=== PATIENT | female | born 1975 | race Caucasian/White ===

== ENCOUNTER 2019-09-19 11:25 | Outpatient (CLI) | payer BC, OTHER, SELFPAY ==
--- NOTE | ~2019-09-19 | US_ITS ---
EXAMINATION: US venous doppler [facility] DATE: 09/19/2019 11:54 INDICATION: Left lower limb swelling TECHNIQUE: Sarah scale images without and with compression and Doppler images of the left lower extrem ity veins were obtained. COMPARISON: None FINDINGS: The left common femoral vein, profunda femoral vein, femoral vein, popliteal vein, peroneal trunk, posterior tibial veins, and greater saphenous vein are patent. IMPRESSION: 1. Patent left lower extremity veins. No evidence of deep venous thrombosis. Reviewed, dictated and finalized at location A.
== END 2019-09-19 11:26 | disposition home or self-care (01) ==
LOC: ANHIMG 11:32
PROVIDERS: PCP Registered Nurse; Visit Provider Registered Nurse
DX: M79.89 Other specified soft tissue disorders (principal); M79.662 Pain in left lower leg
CPT/HCPCS: 93971

== ENCOUNTER 2019-10-18 08:14 | Outpatient (CLI) | payer BC, OTHER, SELFPAY ==
--- NOTE | ~2019-10-18 | MM_ITS ---
EXAMINATION: MM screening [facility] BI w ifrah HISTORY: Screening TECHNIQUE: Craniocaudal and mediolateral oblique 3-D tomosynthesis images were obtained and synthetic 2-D images were generated. CAD analysis was submitted and interpreted. COMPARISON: Comparison to multiple prior studies sequentially, with oldest reviewed study dated 10/11. BREAST PARENCHYMAL COMPOSITION: There are scattered areas of fibroglandular density. FINDINGS: There is no evidence of suspicious mass, calcification, or architectural distortion to sugg est malignancy in either breast. There has been no suspicious interval change. IMPRESSION: 1. No mammographic evidence of malignancy. 2. Recommend routine screening mammography in one year. BI-RADS Category 1: Negative Reviewed, dictated and finalized at location A.
== END 2019-10-18 08:15 | disposition home or self-care (01) ==
LOC: ANHIMG 08:17
PROVIDERS: PCP Registered Nurse; Visit Provider Registered Nurse
DX: Z12.31 Encounter for screening mammogram for malignant neoplasm of breast (principal)
CPT/HCPCS: 77063; 77067

== ENCOUNTER 2020-06-12 14:49 | Outpatient (CLI) | payer BC, OTHER, SELFPAY ==
--- NOTE | ~2020-06-12 | XR_ITS ---
EXAMINATION: XR hip LT min 2V, XR hip RT min 2V DATE: 06/12/2020 15:17 INDICATION: Multiple joint pain TECHNIQUE: 1. Anteroposterior and frog-leg lateral views of the left hip were obtained. 2. Anteroposterior and frog-leg lateral views of the right hip were obtained. COMPARISON: None. FINDINGS: Alignment is normal at both hips. No fracture or suspected avascular necrosis. Bilateral hip joint sp aces are normal with small marginal osteophytes about the lateral rims of the acetabula. Sacrum and b ilateral sacral iliac joints are normal. Soft tissues are unremarkable. IMPRESSION: 1. Minimal bilateral hip osteoarthritis. Reviewed, dictated and finalized at location A. IMPRESSION: 1. Minimal bilateral hip osteoarthritis.
--- NOTE | ~2020-06-12 | XR_ITS ---
EXAMINATION: XR hand LT 2V, XR hand RT 2V, XR wrist LT 2V, XR wrist RT 2V DATE: 06/12/2020 15:17 INDICATION: Multiple joint pain TECHNIQUE: 1. Posteroanterior and lateral views of the right wrist were obtained. 2. Dorsal palmar and lateral views of the right hand were obtained. 3. Posteroanterior and lateral views of the left wrist were obtained. 4. Dorsal palmar and lateral views of the left hand were obtained. COMPARISON: None. FINDINGS: Alignment of the bilateral hands and wrists is normal. No fracture identified. Minimal to mild polya rticular osteoarthritis with slight nonuniform joint space narrowing at the bilateral hands and wrist s with typical distribution. This includes at the right distal radioulnar, bilateral midcarpal, trisc aphe, left first metacarpophalangeal and bilateral fifth metacarpophalangeal and multiple bilateral i nterphalangeal joints with distal predominance. No erosions to suggest inflammatory arthritis. No foc al soft tissue swelling. IMPRESSION: 1. Minimal to mild polyarticular osteoarthritis with typical distribution at the bilateral hands and wrists. Reviewed, dictated and finalized at location A. IMPRESSION: 1. Minimal to mild polyarticular osteoarthritis with typical distribution at th e bilateral hands and wrists. IMPRESSION: 1. Minimal to mild polyarticular osteoarthritis with typical distribution at th e bilateral hands and wrists. IMPRESSION: 1. Minimal to mild polyarticular osteoarthritis with typical distribution at th e bilateral hands and wrists.
--- NOTE | ~2020-06-12 | XR_ITS ---
EXAMINATION: XR foot LT 2V, XR foot RT 2V DATE: 06/12/2020 15:17 INDICATION: Multiple joint pain TECHNIQUE: 1. Dorsoplantar and lateral views of the left foot were obtained. 2. Dorsoplantar and lateral views of the right foot were obtained. COMPARISON: None. FINDINGS: Alignment is normal at both feet. No fracture. Minimal to mild osteoarthritis at the first metatarsop halangeal and several interphalangeal joints in both feet. No erosions to suggest an inflammatory art hritis. Bilateral small Achilles and plantar calcaneal spurs. Soft tissues are unremarkable. IMPRESSION: 1. Minimal to mild polyarticular osteoarthritis in the bilateral forefeet. Reviewed, dictated and finalized at location A. IMPRESSION: 1. Minimal to mild polyarticular osteoarthritis in the bilateral forefeet.
== END 2020-06-12 14:50 | disposition home or self-care (01) ==
LOC: ANHIMG 14:52
PROVIDERS: PCP Registered Nurse; Visit Provider Internal Medicine Rheumatology
DX: M19.041 Primary osteoarthritis, right hand (principal); M19.042 Primary osteoarthritis, left hand; M19.031 Primary osteoarthritis, right wrist; M19.032 Primary osteoarthritis, left wrist
CPT/HCPCS: 73100; 73120; 73502; 73620

== ENCOUNTER 2020-10-28 07:34 | Outpatient (CLI) | payer BC, OTHER, SELFPAY ==
--- NOTE | ~2020-10-28 | MM_ITS ---
EXAMINATION: MM screening olivia BI w ifrah HISTORY: Screening TECHNIQUE: Craniocaudal and mediolateral oblique 3-D tomosynthesis images were obtained and synthetic 2-D images were generated. CAD analysis was submitted and interpreted. COMPARISON: 10/18/2019 BREAST PARENCHYMAL COMPOSITION: There are scattered areas of fibroglandular density. FINDINGS: There is no evidence of suspicious mass, calcification, or architectural distortion to sugg est malignancy in either breast. There has been no suspicious interval change. IMPRESSION: 1. No mammographic evidence of malignancy. 2. Recommend routine screening mammography in one year. BI-RADS Category 1: Negative Reviewed, dictated and finalized at location A.
== END 2020-10-28 07:35 | disposition home or self-care (01) ==
LOC: ANHIMG 07:36
PROVIDERS: PCP Registered Nurse; Visit Provider Registered Nurse
DX: Z12.31 Encounter for screening mammogram for malignant neoplasm of breast (principal)
CPT/HCPCS: 77063; 77067

== ENCOUNTER 2021-12-22 07:19 | Outpatient (CLI) | payer OTHER, SELFPAY ==
--- NOTE | ~2021-12-22 | MM_ITS ---
EXAMINATION: MM screening [facility] BI w ifrah HISTORY: Screening mammogram TECHNIQUE: Craniocaudal and mediolateral oblique 3-D tomosynthesis images were obtained and synthetic 2-D images were generated. Bilateral rotated lateral CC views. ............CAD analysis was submitte d and interpreted. COMPARISON: 10/28/2020, 10/18/2019, bilateral screening mammogram examinations BREAST PARENCHYMAL COMPOSITION: There are scattered areas of fibroglandular density. FINDINGS: There is no evidence of suspicious mass, calcification, or architectural distortion to sugg est malignancy in either breast. There has been no suspicious interval change. IMPRESSION: 1. No mammographic evidence of malignancy. 2. Recommend routine screening mammography in one year. BI-RADS Category 1: Negative Reviewed, dictated and finalized at location A. AULIC BLOCKER
== END 2021-12-22 07:20 | disposition home or self-care (01) ==
PROVIDERS: PCP Registered Nurse; Visit Provider Registered Nurse
DX: Z12.31 Encounter for screening mammogram for malignant neoplasm of breast (principal)
CPT/HCPCS: 77063; 77067

== ENCOUNTER 2023-01-21 07:12 | Outpatient (CLI) | payer OTHER, SELFPAY ==
--- NOTE | ~2023-01-21 | MM_ITS ---
EXAMINATION: MM screening [facility] BI w ifrah HISTORY: Screening mammogram TECHNIQUE: Craniocaudal and mediolateral oblique 3-D tomosynthesis images were obtained and synthetic 2-D images were generated. CAD analysis was submitted and interpreted. COMPARISON: 12/22/2021, 10/28/2020, 10/18/2019 BREAST PARENCHYMAL COMPOSITION: There are scattered areas of fibroglandular density. FINDINGS: A stable asymmetry is noted in the posterior third of the upper right breast on the mediola teral oblique view. No suspicious mass, calcification, or architectural distortion are identified in either breast to suggest malignancy. There has been no suspicious interval change. IMPRESSION: 1. No mammographic evidence of malignancy. 2. Recommend routine screening mammography in one year. BI-RADS Category 2: Benign finding(s). Reviewed, dictated and finalized at location A. [employer]GE [employer]ER
== END 2023-01-21 07:13 | disposition home or self-care (01) ==
LOC: ANHIMG 07:15
PROVIDERS: PCP Registered Nurse; Visit Provider Registered Nurse
DX: Z12.31 Encounter for screening mammogram for malignant neoplasm of breast (principal)
CPT/HCPCS: 77063; 77067

== ENCOUNTER 2023-07-13 11:21 | Outpatient (CLI) | payer OTHER, SELFPAY ==
--- NOTE | 2023-07-13 11:38 | ECG_ITS ---
SEE SCANNED COPY FOR CONFIRMED REPORT MTDD
== END 2023-07-13 11:22 | disposition home or self-care (01) ==
PROVIDERS: PCP Registered Nurse; Visit Provider Obstetrics & Gynecology
DX: E78.00 Pure hypercholesterolemia, unspecified (principal); E11.9 Type 2 diabetes mellitus without complications
CPT/HCPCS: 93005

== ENCOUNTER 2023-07-20 01:30 | Day surgery (SDC) | payer OTHER, SELFPAY ==
[2023-07-12 13:30] VITALS: BMI 31.0
--- NOTE | 2023-07-12 13:31 | PC.NURSE ---
Report to the Outpatient Waiting Room, entrance under the green pavilion located off [facility], at time _0600_ on date _[id number]_. Planned Procedure Time: _0730_. Time changes happen often and if your time is changed the preop area will call you the afternoon before. - You and your visitor will be asked to self-screen and do not enter if you have any COVID symptoms. - A mask is optional within the hospital at this time. Patients may have clear liquids (water, carbonated beverages, clear teas, apple juice) until 3 hours prior to surgery with a maximum of 20 ounces. - No food from midnight until time of surgery Take the following medications with a SIP of water the morning of surgery: ___Metoprolol DO NOT STOP ANY OF YOUR OTHER PRESCRIPTION MEDICATIONS PRIOR TO SURGERY ?EXCEPT THE FOLLOWING Medications to discontinue per physician __None Date to take last dose Please no make-up, nail south african, hairspray, perfume, deodorant, or body powder the day of surgery. No jewelry (including any body piercings) or valuables the day of surgery, leave them at home. Please take a shower or bath the night before, or the morning of, surgery with an antibacterial soap. Wear comfortable, loose fitting clothing. - Jewelry must be removed prior to entering the operating room. Rings and piercings that are not removed may be cut off. - The hospital will not accept responsibility for valuables. - Please leave all valuables, including medications, at home the day of surgery. If you are going home after surgery, a licensed regional company truck driver must drive you home. - NO public transportation without another adult if you receive anesthesia. - We recommend that an adult stay with you for 24 hours following discharge. - We also recommend that you do not drive, make important decision, drink alcoholic beverages, or take any drugs that were not prescribed by your health care provider for at least 24 hours after your discharge time. Follow any additional instructions given to you from your surgeon. If you or anyone in your household have experienced Covid symptoms in the past week, please notify your surgeon or the nurse liaison at the phone number below for possible testing. Telephone instructions given to __Debra__and asked if any additional questions and then verbalized understanding. Patient advised to call surgeon office or pre surgery nurse liaison [phone] if any additional questions.
[2023-07-20 06:20] VITALS: BP 133/81; PULSE 88; RESP 18; TEMP 36.5; O2SAT 100
[2023-07-20] MEDS: LACTATED RINGERS 1,000 ML 30 ML IV CONT (07:12)
[2023-07-20] MEDS: ACETAMINOPHEN 500 MG TABLET 1000 MG PO (07:14)
[2023-07-20 07:20] LABS: Glucose Point of Care 160 mg/dl (65-105)
--- NOTE | 2023-07-20 07:28 | WPDANESEPPF ---
Anes - Initial Pre Proc Eval Procedure: Operation Date: 07/20/23 08:00 Proposed Procedures p Hysteroscopy with Biopsy of Endometrium and/or Polypectomy - Roni Gordon MD Date/Time: 07/20/23 07:28 Surgeon: Roni Gordon MD Pre Op Diagnosis: Menorrhagia, Dysmenorrhea Patient Data Age: 47 Gender: F Height: 1.68 m Weight: 88.9 kg Last Vital Signs Temp 36.5 C 07/20/23 06:20 Pulse 88 07/20/23 06:20 Resp 18 07/20/23 06:20 BP 133/81 07/20/23 06:20 Pulse Ox 100 07/20/23 06:20 O2 Del Method Room Air 07/20/23 06:20 Allergies Allergy/AdvReac Type Severity Reaction Status Date / Time No Known Allergies Allergy Verified 07/20/23 06:52 Home Medications Medication Instructions Recorded Confirmed Type ergocalciferol (vitamin D2) 1,250 50,000 unit PO WEEKLY 01/10/19 07/20/23 History mcg (50,000 unit) capsule (Vitamin D2) metformin 1,000 mg tablet 1,000 mg PO BID 01/10/19 07/20/23 History metoprolol tartrate 25 mg tablet 25 mg PO DAILY 01/10/19 07/20/23 History zolpidem 6.25 mg tablet,extended 6.25 mg PO HS 01/10/19 07/20/23 History release,multiphase atorvastatin 10 mg tablet 10 mg PO DAILY 07/12/23 07/20/23 History tirzepatide 10 mg/0.5 mL 10 mg subcut WEEKLY 07/12/23 07/20/23 History subcutaneous pen injector (Mounjaro) aspirin 81 mg tablet 81 mg PO DAILY 07/20/23 07/20/23 History losartan 50 mg tablet 50 mg PO DAILY 07/20/23 07/20/23 History methotrexate sodium 2.5 mg tablet 17.5 mg PO WEEKLY 07/20/23 07/20/23 History pregabalin 50 mg capsule 50 mg PO BID 07/20/23 07/20/23 History Laboratory Tests 07/20/23 07:16 POC Capillary Glucose 160 H mg/dl (65-105) Patient hx anesthesia problems: none Family hx anesthesia problems: none Results Review: All pre-operative results and documents have been reviewed as part of the pre-operative evaluation. [facility] Past Medical History Medical History Arthritis Delivery with history of section Diabetes Hypercholesterolemia Surgical History Surgical History History of cholecystectomy Social History Social History Smoking status: Never smoker Living arrangements: with family Gender identity (if verbalized by the patient): Female Spiritual care concerns: No Anes - Eval Final PreProcedure Day of Procedure 07/20/23 07:28 Patient weight: obese Heart: regular rate and rhythm Lungs: clear to auscultation Airway: Mallampati scale class II Neurological: alert and oriented Last oral intake: >/= 8 hours ASA classification: III Emergent: no Anesthetic plan: proceed Anesthesia type and monitoring: general GIVS and standard monitoring Results Review: All pre-operative results and documents have been reviewed as part of the pre-operative evaluation. Informed Consent: The patient's anesthetic plan and its attendant risks and benefits were discussed with the patient/family/POA. Questions were solicited and answers provided to the satisfaction of the patient/family/POA.
--- NOTE | 2023-07-20 08:08 | WPDHPUPDATE1 ---
History and Physical Update Update Date/Time: 07/20/23 08:08 Procedure to include endometrial biopsy and possible polypectomy. History and Physical has been reviewed, including an updated exam of the patient. There are NO changes in the patient's condition. Risks, benefits, and alternatives have been discussed and questions answered. Patient agrees to proceed with procedure.
[2023-07-20] MEDS: LIDOCAINE HCL 1% LOCAL INJ 20 ML VIAL 10 ML INFILTRATE (08:37)
[2023-07-20] MEDS: KETOROLAC 30 MG/ML VIAL (*BKC) IV PUSH (09:01)
--- NOTE | 2023-07-20 09:04 | W.PM.PROC2 ---
Procedure Note - Detailed Date of Procedure 07/20/23 Pre-op Diagnosis Menorrhagia, Dysmenorrhea Post-op Diagnosis Same Procedure Performed Hysteroscopy D&C Surgeon Roni Gordon MD Anesthesia MAC Indications abnormal uterine bleeding Findings Normal endometrial cavity, small polypoid structure, posterior wall, possible small septum. Description of Procedure the patient was taken the operating room. She was prepped and draped in the dorsal lithotomy position after induction of mac anesthesia. A speculum was placed in the vagina. The cervix was grasped with a tenaculum. The cervix was dilated about 1 cm. The hysteroscope was inserted. The intrauterine cavity and endocervix were evaluated. Hysteroscope was withdrawn. A medium-size curette was used to curettage all the surfaces were within the endometrial cavity. the sample was collected on Telfa and sent to pathology. The hysteroscope was reinserted and the above findings were noted. Patient tolerated the procedure well. The speculum and tenaculum were removed. She was taken recovery room in stable condition. Sponge lap and needle counts were correct x2. Estimated Blood Loss 40 Drains No Packing No Pathology Yes Complications No immediate complications Condition Stable Disposition PACU
[2023-07-20 09:11] VITALS: BP 130/85; PULSE 86; RESP 16; O2SAT 97
[2023-07-20 09:20] LABS: Glucose Point of Care 103 mg/dl (65-105)
[2023-07-20 09:40] VITALS: BP 112/98; PULSE 87; RESP 16
[2023-07-20] MEDS: oxyCODONE HCL (*CRX) 5 MG TAB IR PO (09:42)
[2023-07-20 10:10] VITALS: BP 119/65; PULSE 85; RESP 16
== END 2023-07-20 10:28 | disposition home or self-care (01) ==
PROVIDERS: PCP Registered Nurse; Visit Provider Obstetrics & Gynecology
PROC: 0U5B8ZZ Destruction of Endometrium, Via Natural or Artificial Opening Endoscopic (ICD-10-PCS; CPT 58563; principal; 2023-07-20 08:00)
DX: N92.0 Excessive and frequent menstruation with regular cycle (principal); N94.6 Dysmenorrhea, unspecified; N84.0 Polyp of corpus uteri; E11.9 Type 2 diabetes mellitus without complications; E78.00 Pure hypercholesterolemia, unspecified; E66.9 Obesity, unspecified; Z68.31 Body mass index [BMI] 31.0-31.9, adult; Z79.84 Long term (current) use of oral hypoglycemic drugs; Z79.85 Long-term (current) use of injectable non-insulin antidiabetic drugs; Z79.82 Long term (current) use of aspirin; Z79.631 Long term (current) use of antimetabolite agent
CPT/HCPCS: 58558; 82948; 88305; A9270; J1100; J1885; J2250; J2405; J2704; J3010; J7120

== ENCOUNTER 2023-08-26 11:33 | Outpatient (CLI) | payer OTHER, SELFPAY ==
[2023-08-26 12:21] LABS: Alanine Aminotransferase 31 U/L (6-35); Albumin Level 4.3 g/dL (3.5-5.1); Alkaline Phosphatase 79 U/L (38-126); Anion Gap 9 mmol/L (4-12); Aspartate Amino Transferase 26 U/L (14-36); Bilirubin,Total 0.4 mg/dL (0.2-1.3); Blood Urea Nitrogen 7 mg/dL (7-17); Calcium 8.8 mg/dL (8.4-10.2); Carbon Dioxide 28 mmol/L (22-30); Chloride 101 mmol/L (98-107); Estimated Glomerular Filt Rate > 60; Glucose 87 mg/dL (65-110); Potassium 4.1 mmol/L (3.4-5.0); Sodium 138 mmol/L (137-145)
== END 2023-08-26 11:34 | disposition home or self-care (01) ==
LOC: ANHSURGERY 11:37
PROVIDERS: PCP Registered Nurse; Visit Provider Obstetrics & Gynecology
DX: E78.00 Pure hypercholesterolemia, unspecified (principal); N92.0 Excessive and frequent menstruation with regular cycle
CPT/HCPCS: 36415; 80053; 86850; 86900; 86901

== ENCOUNTER 2023-08-31 02:25 | Day surgery (SDC) | payer OTHER, SELFPAY ==
[2023-08-25 12:05] VITALS: BMI 31.0
--- NOTE | 2023-08-25 12:06 | PC.NURSE ---
Report to the Outpatient Waiting Room, entrance under the green pavilion located off [facility], at time _0600_ on date _[id number]_. Planned Procedure Time: _0730_. Time changes happen often and if your time is changed the preop area will call you the afternoon before. - You and your visitor will be asked to self-screen and do not enter if you have any COVID symptoms. - A mask is optional within the hospital at this time. Patients may have clear liquids (water, carbonated beverages, clear teas, apple juice) until 3 hours prior to surgery with a maximum of 20 ounces. - No food from midnight until time of surgery Take the following medications with a SIP of water the morning of surgery: ___Metoprolol DO NOT STOP ANY OF YOUR OTHER PRESCRIPTION MEDICATIONS PRIOR TO SURGERY ?EXCEPT THE FOLLOWING Medications to discontinue per physician All vitamins Date to take last raaf__[id number] Please no make-up, nail kyrgyz, hairspray, perfume, deodorant, or body powder the day of surgery. No jewelry (including any body piercings) or valuables the day of surgery, leave them at home. Please take a shower or bath the night before, or the morning of, surgery with an antibacterial soap. Wear comfortable, loose fitting clothing. - Jewelry must be removed prior to entering the operating room. Rings and piercings that are not removed may be cut off. - The hospital will not accept responsibility for valuables. - Please leave all valuables, including medications, at home the day of surgery. If you are going home after surgery, a licensed cdl driver must drive you home. - NO public transportation without another adult if you receive anesthesia. - We recommend that an adult stay with you for 24 hours following discharge. - We also recommend that you do not drive, make important decision, drink alcoholic beverages, or take any drugs that were not prescribed by your health care provider for at least 24 hours after your discharge time. Follow any additional instructions given to you from your surgeon. If you or anyone in your household have experienced Covid symptoms in the past week, please notify your surgeon or the nurse liaison at the phone number below for possible testing. Telephone instructions given to _Debra_and asked if any additional questions and then verbalized understanding. Patient advised to call surgeon office or pre surgery nurse liaison [phone] if any additional questions.
[2023-08-31] VITALS (19 sets, daily range): BP systolic 113–145; BP diastolic 67–89; PULSE 88–100; RESP 12–20; TEMP 36.2–37.1; O2SAT 91–100; BMI 30.9
[2023-08-31] MEDS: LACTATED RINGERS 1,000 ML 30 ML IV CONT ×2 (06:25→10:15)
[2023-08-31 06:31] LABS: Glucose Point of Care 133 mg/dl (65-105)
[2023-08-31] MEDS: KETOROLAC 15 MG/ML VIAL (*BKC) IV PUSH (07:12)
[2023-08-31] MEDS: ACETAMINOPHEN 500 MG TABLET 1000 MG PO (07:12)
--- NOTE | 2023-08-31 07:18 | WPDANESEPPF ---
Anes - Initial Pre Proc Eval Procedure: Operation Date: 08/31/23 07:30 Proposed Procedures p Total Laparoscopic Hysterectomy with Bilateral Salpingo-oophorectomy - Roni Gordon MD Date/Time: 08/31/23 07:18 Surgeon: Roni Gordon MD Pre Op Diagnosis: Menorrhagia Patient Data Age: 47 Gender: F Height: 1.68 m Weight: 87.3 kg Allergies Allergy/AdvReac Type Severity Reaction Status Date / Time No Known Allergies Allergy Verified 08/25/23 11:57 Home Medications Medication Instructions Recorded Confirmed Type ergocalciferol (vitamin D2) 1,250 50,000 unit PO WEEKLY 01/10/19 08/25/23 History mcg (50,000 unit) capsule (Vitamin D2) metformin 1,000 mg tablet 1,000 mg PO BID 01/10/19 08/25/23 History metoprolol tartrate 25 mg tablet 25 mg PO DAILY 01/10/19 08/25/23 History zolpidem 6.25 mg tablet,extended 6.25 mg PO HS 01/10/19 08/25/23 History release,multiphase atorvastatin 10 mg tablet 10 mg PO DAILY 07/12/23 08/25/23 History tirzepatide 10 mg/0.5 mL 10 mg subcut WEEKLY 07/12/23 08/25/23 History subcutaneous pen injector (Blossom) aspirin 81 mg tablet 81 mg PO DAILY 07/20/23 08/25/23 History losartan 50 mg tablet 50 mg PO DAILY 07/20/23 08/25/23 History methotrexate sodium 2.5 mg tablet 17.5 mg PO WEEKLY 07/20/23 08/25/23 History pregabalin 50 mg capsule 50 mg PO BID 07/20/23 08/25/23 History estradiol 1 mg tablet 1 mg PO DAILY 08/25/23 08/25/23 History folic acid 1 mg tablet 1 mg PO DAILY 08/25/23 08/25/23 History medroxyprogesterone 5 mg tablet 5 mg PO DAILY 08/25/23 08/25/23 History omeprazole 20 mg capsule,delayed 20 mg PO DAILY 08/25/23 08/25/23 History release Laboratory Tests 08/31/23 06:29 POC Capillary Glucose 133 H mg/dl (65-105) Patient hx anesthesia problems: none Family hx anesthesia problems: none Results Review: All pre-operative results and documents have been reviewed as part of the pre-operative evaluation. [facility] Past Medical History Medical History Arthritis Delivery with history of section Diabetes Hypercholesterolemia Surgical History Surgical History History of cholecystectomy Social History Social History Smoking status: Never smoker Living arrangements: with family Gender identity (if verbalized by the patient): Female Spiritual care concerns: No Anes - Eval Final PreProcedure Day of Procedure 08/31/23 07:18 Patient weight: obese Heart: regular rate and rhythm Lungs: clear to auscultation Airway: Mallampati scale class II Neurological: alert and oriented Last oral intake: >/= 8 hours ASA classification: III Emergent: no Anesthetic plan: proceed Anesthesia type and monitoring: general ETT and standard monitoring Results Review: All pre-operative results and documents have been reviewed as part of the pre-operative evaluation. Informed Consent: The patient's anesthetic plan and its attendant risks and benefits were discussed with the patient/family/POA. Questions were solicited and answers provided to the satisfaction of the patient/family/POA.
--- NOTE | 2023-08-31 07:19 | WPDHPUPDATE1 ---
History and Physical Update Update Date/Time: 08/31/23 07:19 History and Physical has been reviewed, including an updated exam of the patient. There are NO changes in the patient's condition. Risks, benefits, and alternatives have been discussed and questions answered. Patient agrees to proceed with procedure.
--- NOTE | 2023-08-31 07:24 | PM.IMHP ---
H&P: HPI History of Present Illness Date/Time: 08/31/23 07:24 Chief Complaint: Painful and heavy menses Narrative: This patient is a 47-year-old female with longstanding severe dysmenorrhea and menorrhagia. She has tried multiple medical therapies. She is also tried numerous surgical therapies and treatments of her uterus. The patient is menorrhagia and dysmenorrhea are debilitating. She has accidents where she gets blood on her bedding and clothing. She isn't able to complete her activities of daily living due to pain and bleeding. The patient would like definitive surgical treatment. We agreed to proceed with total laparoscopic hysterectomy and bilateral salpingo-oophorectomy. We discussed other treatments. We discussed all the medical treatments along with the endometrial ablation procedure. She declined any further non definitive treatment. She has suffered significantly for a great deal of time. We will perform endometrial biopsy prior to the surgery. We spent over 40 minutes [id number]. We made a decision to perform surgery. We had a lengthy discussion about removal of the ovaries. She understands the risks, benefits, and alternatives to bilateral salpingo-oophorectomy. patient will contact us when she is ready to proceed with total laparoscopic hysterectomy bilateral salpingo-oophorectomy. Review of Systems Review of Systems: All systems reviewed & are unremarkable except as noted in HPI and below Constitutional: Constitutional: Denies chills, Denies fatigue, Denies fever(s) and Denies weakness Eyes: Eyes: Denies blurry vision, Denies change in vision, Denies loss of peripheral vision, Denies loss of vision, Denies other visual disturbances and Denies eye pain ENT: Denies vertigo, Denies dizziness, Denies hearing loss, Denies mouth pain, Denies nasal obstruction, Denies neck mass and Denies neck pain Cardiovascular: Cardiovascular: Denies chest pain, Denies diaphoresis, Denies syncope, Denies leg edema and Denies dyspnea Respiratory: Respiratory: Denies chest congestion, Denies cough, Denies hemoptysis, Denies dyspnea and Denies wheezing Gastrointestinal: Gastrointestinal: Denies abdominal pain, Denies constipation, Denies diarrhea, Denies nausea and Denies vomiting Genitourinary: Genitourinary: Denies hematuria, Denies change in libido, Denies nocturia, Denies genital lesions, Denies flank pain and Denies urinary urgency Musculoskeletal: Musculoskeletal: Denies abnormal gait, Denies back pain, Denies myalgias, Denies arthralgias, Denies joint swelling, Denies muscle weakness and Denies neck pain Integumentary/Breasts: Skin/Breast: Denies swelling, Denies breast pain, Denies breast mass, Denies dry skin, Denies nipple discharge, Denies unusual bruising and Denies jaundice Neurologic: Denies Neuro-related abnormal movements, Denies Abnormal speech present, Denies abnormal gait, Denies behavioral changes, Denies confusion, Denies vertigo, Denies dizziness, Denies syncope, Denies loss of vision, Denies memory loss, Denies convulsions and Denies weakness Psychiatric: Psychiatric: Denies abnormal sleep pattern, Denies behavioral changes, Denies change in libido, Denies confusion, Denies depression, Denies anhedonia and Denies memory loss Endocrine: Endocrine: Reports no additional endocrine complaints, Denies change in libido and Denies fatigue Hematologic/Lymphatic: Hematologic/Lymphatic: Reports no additional hematologic/lymphatic complaints Allergic/Immunologic: Allergic/Immunologic: Reports no additional allergic/immunologic complaints and Denies wheezing [facility] Past Medical History Medical History Arthritis Delivery with history of section Diabetes Hypercholesterolemia Surgical History Surgical History History of cholecystectomy Social History Social History Sm
[2023-08-31] MEDS: ceFAZolin 2 GM/D5W 50 ML 2 GM/50 ML BAG IVPB (07:31)
[2023-08-31] MEDS: ceFAZolin SODIUM 1 GM VIAL (08:13)
[2023-08-31] MEDS: METHYLENE BLUE 0.5% INJ 10 ML AMPULE IRRIGATION (09:31)
[2023-08-31 10:23] LABS: Glucose Point of Care 138 mg/dl (65-105)
[2023-08-31] MEDS: fentaNYL CITRATE INJ (*CRX) 100 MCG/2 ML VIAL 25 MCG IV PUSH ×5 (10:24→11:15)
--- NOTE | 2023-08-31 10:38 | W.PM.PROC2 ---
Procedure Note - Detailed Date of Procedure 08/31/23 Pre-op Diagnosis Menorrhagia Post-op Diagnosis Same Procedure Performed Total laparoscopic Hysterectomy and bilateral salpingo-oophorectomy. Adhesiolysis-1 hour Surgeon Roni Gordon MD Anesthesia General Findings adhesions between the omentum and the anterior abdominal wall, complete adherence of the uterus to the anterior pelvis and anterior abdominal wall. Dense scar tissue in places where the uterus was adherent. Enlarged uterus. Normal-appearing tubes and ovaries. Description of Procedure This patient was taken to the operating room. She was prepped and draped in the dorsal lithotomy position after induction of general anesthesia. The uterine manipulator and Wilda cup were placed. This was done with a speculum and tenaculum. The speculum was placed. The cervix was grasped with a tenaculum. The stay sutures were placed at 3 and 9:00 a.m.. The stay sutures of 0 Vicryl were brought through the appropriately sized Wilda cup. The tip of the ALEXANDRA manipulator was placed in the intrauterine cavity. The cup was slid into place around the cervix and into the fornices. It was locked into place. The sutures were then wrapped around the handle and tied under tension. A 5 mm skin incision was made in the left upper quadrant the abdomen. A 5 mm trocar was inserted into the intrauterine cavity under direct visualization of the scope. Pneumoperitoneum was achieved. A left lower quadrant 11 mm incision was made with scalpel. An 11 mm trocar was inserted into the anterior abdominal cavity under direct visualization the scope. A 5 mm infraumbilical incision was made with a scalpel and a 5 mm trocar was inserted the intra-abdominal cavity under direct visualization of the scope. 1 hour adhesiolysis was performed. This was done with blunt and sharp dissection With cautery. Omentum and uterus was from the anterior abdominal wall and pelvis. Bilateral ureteral lysis was performed. This was done from the pelvic brim down to the uterine artery. This was done with careful dissection using sharp and blunt dissection. The infundibulopelvic ligaments were isolated after identification of the ureters bilaterally. These infundibulopelvic ligaments were cauterized and transected with LigaSure cautery. The para ovarian tissue was cauterized and transected with LigaSure cautery bilaterally. Moving around the ovary into the broad ligament the tissue was cauterized transected with LigaSure cautery. The round ligaments were cauterized transected with LigaSure cautery this was all done in a bilateral fashion. In a stepwise fashion along the lateral aspects of the uterus the round ligament and broad ligaments were cauterized transected down to the level of the uterine arteries. A bladder flap was created in the bladder was moved distally to the end of the cervix and over the Wilda cup. The bilateral uterine arteries were cauterized and transected. Colpotomy was then performed. In a circumferential fashion the vagina was transected using unipolar cautery. The incision was made down on the Wilda cup. The uterus, cervix, fallopian tubes and ovaries were taken out through the vagina. A pneumo occluder was placed in the vagina. The vaginal cuff was closed with a 0 V lock suture in a running fashion. The pelvis was irrigated with copious amounts antibiotic irrigation. The ureters were again examined and found to be intact and flowing freely under the uterine arteries into the bladder. Cystoscopy was performed. The cystoscope was inserted in the ureteral orifices were examined. methylene blue had been previously given was seen to egress from both ureteral orifices. The bladder was intact . The cystoscope was withdrawn. The vagina was irrigated with Betadine solution after removal of the Pneumo occluder. The patient was taken to recovery room. She was stable condition. Sponge lap and needle coun
[2023-08-31] MEDS: diphenhydrAMINE HCl INJ 50 MG/ML VIAL 12.5 MG IV PUSH ×2 (10:48→11:25)
[2023-08-31] MEDS: HYDROmorphone HCL INJ (*CRX) 1 MG/ML SYR 0.5 MG IV PUSH ×4 (11:29→11:59)
--- NOTE | 2023-08-31 12:56 | ADMGEN ---
This patient, Angélica Romano, was admitted to -. Patient/family oriented to hospital policies and general routines including ID bracelet, bed and alarms, visiting hours, pain management, procedures, bathroom and other care routines, personal items, smoking policy, room service/diet, and visiting hours. Information on how to activate the Rapid Response Team has been discussed. Patient/Family are encouraged to report perceived risks to care and to ask questions if they do not understand what they are told or what they should do. Report from Mini in PACU.
[2023-08-31] MEDS: DEXTROSE 5%/0.45% SOD CHL 1,000 ML 125 ML IV CONT (13:15)
[2023-08-31] MEDS: SIMETHICONE 80 MG TAB.CHEW PO ×2 (13:16→16:16)
[2023-08-31] MEDS: HYDROcodone/acetaminophen (*CRX) 10-325 MG TABLET 1 TAB PO ×3 (13:16→23:29)
[2023-08-31] MEDS: PREGABALIN (*CRX) 50 MG CAPSULE PO (16:16)
[2023-08-31] MEDS: metFORMIN HCL 500 MG TABLET 1000 MG PO (16:17)
[2023-08-31 16:29] LABS: Glucose Point of Care 163 mg/dl (65-105)
[2023-08-31] MEDS: METOPROLOL TARTRATE 25 MG TABLET PO (20:07)
[2023-08-31 20:52] LABS: Glucose Point of Care 168 mg/dl (65-105)
[2023-08-31 20:52] LABS: Glucose Point of Care 159 mg/dl (65-105)
[2023-08-31] MEDS: traZODone HCL 50 MG TABLET PO (23:29)
[2023-08-31] MEDS: DOCUSATE SODIUM 100 MG CAPSULE PO (23:29)
[2023-09-01 02:10] VITALS: BP 126/79; PULSE 89; RESP 20; TEMP 36.8; O2SAT 98
[2023-09-01 06:10] VITALS: BP 121/73; PULSE 94; RESP 18; TEMP 37; O2SAT 97
--- NOTE | 2023-09-01 06:46 | PC.NURSE ---
I have reviewed the charting and agree with the findings. Will continue to monitor and watch for changes.
--- NOTE | 2023-09-01 07:22 | PM.GYNPNOP ---
MAGNETO SPECIALIST - A/P Postoperative Procedures: Procedures Operation Date: 08/31/23 07:30 Actual Procedure Side Surgeon p Total Laparoscopic Hysterectomy with Bilateral Salpingo-oophorectomy, cystoscopy Bilateral Roni Gordon MD Postoperative day: 1 Postoperative status: doing well and other (Tollerating Regular Diet) Postoperative plan: routine post-op care and discharge Time Spent With Patient Time: Total time spent is greater than 50% in coordination of care (as documented) at patient's floor/unit and/or counseling patient: Time with patient: 15 - 25 minutes MAGNETO SPECIALIST- PN:Subj Post-Op Subjective Date/time seen: 09/01/23 07:22 Subjective: patient reports feeling better, pain is well controlled and patient is tolerating oral intake Exam Const: General: cooperative, healthy appearing, comfortable and no acute distress Resp: Auscultation: no crackles, no rales, no rhonchi and no wheezes Cardio: Rhythm: regular rhythm Heart sounds: no click and no murmurs GI: Inspection: non-distended Auscultation: normal bowel sounds Other: Incisions - CDI Extrem: General: normal to inspection, no pedal edema and no calf tenderness MAGNETO SPECIALIST - PN: Obj Data Vital Signs Vital Signs: Vital Signs - 24 hr 08/31/23 07:25 08/31/23 10:15 08/31/23 10:30 Temperature 97.2 F L 97.5 F L Pulse Rate 88 97 97 Respiratory Rate 14 12 12 Blood Pressure 113/81 134/88 130/80 Pulse Oximetry 99 95 98 Oxygen Delivery Room Air Simple Face Mask Simple Face Mask Oxygen Flow Rate 8 8 08/31/23 10:45 08/31/23 11:00 08/31/23 11:15 Temperature Pulse Rate 97 92 99 Respiratory Rate 12 12 16 Blood Pressure 129/78 142/79 H 131/88 Pulse Oximetry 98 96 96 Oxygen Delivery Nasal Cannula Nasal Cannula Nasal Cannula Oxygen Flow Rate 2 2 2 08/31/23 11:30 08/31/23 11:45 08/31/23 12:00 Temperature Pulse Rate 97 94 94 Respiratory Rate 20 12 12 Blood Pressure 145/84 H 143/89 H 115/85 Pulse Oximetry 100 97 96 Oxygen Delivery Nasal Cannula Nasal Cannula Nasal Cannula Oxygen Flow Rate 2 2 2 08/31/23 12:15 08/31/23 12:23 08/31/23 12:35 Temperature Pulse Rate 98 96 Respiratory Rate 12 12 Blood Pressure 135/82 137/82 Pulse Oximetry 97 95 94 Oxygen Delivery Nasal Cannula Nasal Cannula Room Air Oxygen Flow Rate 2 2 08/31/23 12:40 08/31/23 12:55 08/31/23 13:25 Temperature 97.5 F L 97.4 F L 97.5 F L Pulse Rate 96 100 96 Respiratory Rate 20 18 18 Blood Pressure 130/74 123/73 133/75 Pulse Oximetry 99 92 91 Oxygen Delivery Oxygen Flow Rate 08/31/23 14:20 08/31/23 18:02 08/31/23 20:07 Temperature 97.5 F L 97.7 F Pulse Rate 96 93 93 Respiratory Rate 18 20 Blood Pressure 134/75 135/79 Pulse Oximetry 93 97 Oxygen Delivery Oxygen Flow Rate 08/31/23 20:00 08/31/23 22:10 09/01/23 02:10 Temperature 98.7 F 98.3 F Pulse Rate 98 89 Respiratory Rate 20 20 Blood Pressure 125/67 126/79 Pulse Oximetry 100 98 Oxygen Delivery Room Air Oxygen Flow Rate 09/01/23 06:10 Temperature 98.6 F Pulse Rate 94 Respiratory Rate 18 Blood Pressure 121/73 Pulse Oximetry 97 Oxygen Delivery Oxygen Flow Rate Intake/Output Intake/Output: Intake & Output 08/29/23 08/30/23 08/31/23 09/01/23 23:59 23:59 23:59 23:59 Intake Total 1330 480 Output Total 1100 Balance 230 480 Meds/Results Medications: Active Medications Generic Name Dose Route Start Last Admin Trade Name Freq PRN Reason Stop Dose Admin Hydrocodone Bitart/Acetaminophen 1 tab 08/31/23 12:25 Hydrocodone/Acetaminophen (*Crx) 5-325 Mg Tablet PO Q3H PRN Pain Rated 5 or Less Hydrocodone Bitart/Acetaminophen 1 tab 08/31/23 12:25 08/31/23 23:29 Hydrocodone/Acetaminophen (*Crx) 10-325 Mg Tablet PO 1 tab Q3H PRN Administration Pain Rated 6 or Greater Aspirin 81 mg 09/01/23 08:00 Aspirin 81 Mg Chewable Tablet PO DAILY@0800 [facility] Atorvastatin Calcium 10 mg 09/01/23 09:00 Atorvastatin 10 Mg Tab
[2023-09-01] MEDS: METOPROLOL TARTRATE 25 MG TABLET PO (07:57)
[2023-09-01] MEDS: PREGABALIN (*CRX) 50 MG CAPSULE PO (07:57)
[2023-09-01] MEDS: DOCUSATE SODIUM 100 MG CAPSULE PO (07:57)
[2023-09-01] MEDS: LOSARTAN POTASSIUM 50 MG TABLET PO (07:57)
[2023-09-01] MEDS: ASPIRIN 81 MG CHEWABLE TABLET PO (07:57)
[2023-09-01] MEDS: FOLIC ACID 1 MG TABLET PO (07:57)
[2023-09-01] MEDS: ATORVASTATIN 10 MG TABLET PO (07:57)
[2023-09-01] MEDS: SIMETHICONE 80 MG TAB.CHEW PO (07:58)
[2023-09-01] MEDS: PANTOPRAZOLE 40 MG TABLET PO (07:58)
[2023-09-01] MEDS: metFORMIN HCL 500 MG TABLET 1000 MG PO (07:58)
[2023-09-01 08:26] LABS: Glucose Point of Care 128 mg/dl (65-105)
== END 2023-09-01 09:05 | disposition home or self-care (01) ==
LOC: ANHSURGERY 05:53 → ANH3MEDSUR 13:02
PROVIDERS: PCP Registered Nurse; Visit Provider Obstetrics & Gynecology
PROC: 0UT9FZZ Resection of Uterus, Via Natural or Artificial Opening With Percutaneous Endoscopic Assistance (ICD-10-PCS; CPT 58571; principal; 2023-08-31 07:30)
DX: D25.1 Intramural leiomyoma of uterus (principal); D27.0 Benign neoplasm of right ovary; N92.0 Excessive and frequent menstruation with regular cycle; N73.6 Female pelvic peritoneal adhesions (postinfective); N88.8 Other specified noninflammatory disorders of cervix uteri; N80.03 Adenomyosis of the uterus; N83.12 Corpus luteum cyst of left ovary; N83.8 Other noninflammatory disorders of ovary, fallopian tube and broad ligament; Z79.84 Long term (current) use of oral hypoglycemic drugs; Z79.85 Long-term (current) use of injectable non-insulin antidiabetic drugs; Z79.82 Long term (current) use of aspirin; Z79.631 Long term (current) use of antimetabolite agent; E66.9 Obesity, unspecified; Z68.30 Body mass index [BMI] 30.0-30.9, adult
CPT/HCPCS: 58571; 82948; 88307; A9270; J0690; J1100; J1170; J1200; J1885; J2250; J2405; J2704; J3010; J7030; J7120; Q9968

== ENCOUNTER 2023-11-17 14:10 | Outpatient (CLI) | payer OTHER, SELFPAY ==
--- NOTE | ~2023-11-17 | MMUS_ITS ---
EXAMINATION: MM diagnostic olivia RT w ifrah, US breast RT limited HISTORY: Right breast pain. TECHNIQUE: Additional 3-D tomosynthesis images of the right breast were performed and synthetic 2-D i mages were generated. CAD analysis was submitted and interpreted. High resolution Limited right breas t ultrasound was performed. COMPARISON: Comparison to multiple prior studies sequentially, with oldest reviewed study dated 10/11. BREAST PARENCHYMAL COMPOSITION: Not dense: There are scattered areas of fibroglandular density. FINDINGS: MAMMOGRAPHIC FINDINGS: There are no suspicious masses, calcifications or architectural distortion in the right breast to sug gest malignancy. ULTRASOUND: Limited right breast ultrasound: At 9:00, 10 cm from the nipple, there is a predominantly anechoic st ructure which may represent a cluster of microcysts or intramammary lymph node, likely benign. IMPRESSION: 1. Probable benign structure of the right breast at 9:00, 10 cm from the nipple. 2. Recommend 6 month follow-up diagnostic right mammogram and Limited right breast ultrasound BI-RADS category 3, probably benign findings. Reviewed, dictated and finalized at location B. IMPRESSION: 1. Probable benign structure of the right breast at 9:00, 10 cm from the nipple . 2. Recommend 6 month follow-up diagnostic right mammogram and Limited right richard ast ultrasound BI-RADS category 3, probably benign findings.
== END 2023-11-17 14:11 | disposition home or self-care (01) ==
LOC: ANHIMG 14:11
PROVIDERS: PCP Registered Nurse; Visit Provider Nurse Practitioner Family
DX: N64.4 Mastodynia (principal); N63.0 Unspecified lump in unspecified breast
CPT/HCPCS: 76642; 77061; 77065; G0279